=== PATIENT | female | born 1970 | race Caucasian/White ===

== ENCOUNTER 2017-08-31 13:30 | Inpatient (IN) | payer OTHER ==
[~2017-08-31] VITALS: Ht 160 cm; Wt 105.7 kg
[2017-08-31 14:03] VITALS: BP 110/71
--- NOTE | 2017-08-31 14:08 | NUR ---
Patient ambulated to bed 04.
--- NOTE | 2017-08-31 14:16 | NUR ---
PT PRESENTS TO ER W/C/O ABDOMINAL PAIN AND CONSTIPATION X3 DAYS.DENIES N/V/D; SKIN IS PINK/WARM/DRY; AAOX4 WITH EVEN AND STEADY GAIT; LUNGS CLEAR BL; HR EVEN AND REGULAR; PT DENIES ANY FEVER, CP, SOB, OR COUGH AT THIS TIME; PATIENT STATES PAIN OF 8/10 AT THIS TIME;PATIENT POSITIONED FOR COMFORT; HOB ELEVATED; BEDRAILS UP X2; BED DOWN. ER MD MADE AWARE OF PT STATUS.
--- NOTE | 2017-08-31 14:22 | NUR ---
Dr. Russell evaluating patient at bedside.
[2017-08-31] MEDS ORDERED: KETOROLAC 30 MG/ML VIAL IM ONE (14:25)
[2017-08-31 14:41] LABS: BASOPHILS # (AUTO) 0.2 K/uL (0.00-0.22); MEAN CORPUSCULAR VOLUME 81 fL (80-94)
[2017-08-31 14:44] LABS: EOSINOPHILS # (AUTO) 0.2 K/uL (0-0.4); HEMATOCRIT 41.8 % (36-48); LYMPHOCYTES % (AUTO) 12.7 % (20.5-51.1); MEAN CORPUSCULAR HEMOGLOBIN 27 pg (27-31); MEAN CORPUSCULAR HGB CONC 33 g/dL (33-37); MONOCYTES # (AUTO) 1.3 K/uL (0.8-1.0); NEUTROPHILS # (AUTO) 12.4 K/uL (1.8-7.7); NEUTROPHILS % (AUTO) 77.3 % (42.2-75.2); PLATELET COUNT (AUTO) 206 K/uL (140-450); RED BLOOD CELL COUNT(AUTO) 5.19 MIL/uL (4.20-5.40); RED CELL DISTRIBUTION WIDTH 12.9 % (11.6-13.7); WHITE BLOOD COUNT (AUTO) 16.1 K/uL (4.8-10.8)
[2017-08-31 14:51] LABS: ANION GAP 14.1 (8-16); CARBON DIOXIDE 26.9 mmol/L (21-32); CREATININE 0.9 mg/dL (0.6-1.3)
[2017-08-31 14:53] LABS: APPEARANCE,URINE CLEAR (CLEAR); BILIRUBIN,URINE 1+ (NEGATIVE); BLOOD, URINE 3+ (NEGATIVE); LEUKOCYTE ESTERASE ,URINE NEGATIVE (NEGATIVE); NITRITE, URINE NEGATIVE (NEGATIVE); PH,URINE 5.5 (5.0-9.0); UGLUCOSE NEGATIVE (NEGATIVE)
[2017-08-31 14:56] LABS: COLOR,URINE AMBER (YELLOW)
[2017-08-31 14:57] LABS: ALBUMIN 3.5 g/dL (3.4-5.0); TOTAL BILIRUBIN 0.6 mg/dL (0.0-1.0)
[2017-08-31 14:58] LABS: RBC,URINE 0-5 (RARE) /HPF (0-5); WBC,URINE 0-5 (RARE) /HPF (0-5)
--- NOTE | 2017-08-31 15:16 | NUR ---
Patient was taken to CT via wheelchair per tech.
--- NOTE | 2017-08-31 15:26 | NUR ---
Patient back from CT via wheelchair per tech.
--- NOTE | 2017-08-31 15:44 | NUR ---
PT VERBALIZES RELIEF FROM PAIN 4/10 PAIN SCALE;NO FACIAL GRIMMACING /MOANING NOTED;
[2017-08-31] MEDS ORDERED: CYCLOBENZAPRINE 10 MG TAB PO ONE (15:55)
--- NOTE | 2017-08-31 16:13 | NUR ---
PT RESTING ON BED;NO ACUTE DISTRESS NOTED;WILL CONTINUE TO MONITOR PT.
[2017-08-31] MEDS ORDERED: ONDANSETRON 4 MG/2 ML VIAL IVP ONE (16:45)
[2017-08-31] MEDS ORDERED: LORazepam 2 MG/ML VIAL IVP PRN (16:45)
[2017-08-31] MEDS ORDERED: MORPHINE SULFATE 4 MG/ML SYR IVP PRN (16:45)
[2017-08-31] MEDS ORDERED: NACL 0.9% 1,000 ML IV ONE (16:45)
[2017-08-31] MEDS ORDERED: MORPHINE SULFATE 50 MG in NACL 0.9% 45 ML IV SCH (16:45)
[2017-08-31] MEDS ORDERED: ONDANSETRON 4 MG/2 ML VIAL IVP PRN (16:45)
[2017-08-31] MEDS ORDERED: MORPHINE SULFATE 2 MG/ML SYR IVP PRN (16:45)
[2017-08-31] MEDS ORDERED: MORPHINE SULFATE 4 MG/ML SYR IVP ONE (17:00)
--- NOTE | 2017-08-31 17:07 | NUR ---
PT DON'T WANT THE MORPHINE;PT STATES "I WILL WAIT"I DON'T HAVE THAT MUCH PAIN";WILL KEE UE TO MONITOR PT.
--- NOTE | 2017-08-31 17:18 | NUR ---
TRIED TO GIVE REPORT;SPOKE TO JOSE G LYONS;THEY SAID THEY WILL CALL BACK AFETR 10 MINUTES BECAUSE THEY DON'T HAVE A BED YET.
--- NOTE | 2017-08-31 17:35 | NUR ---
PT STILL REFUSE MORPHINE;MEDICINE WAS WASTED IN PHARMACEUTICAL BIN.
--- NOTE | 2017-08-31 17:50 | NUR ---
Patient will be admitted to care of DR GOULD. Admited to MS. Will go to room 105 B. Belongings list completed. Report to JOSE G MART.
--- NOTE | 2017-08-31 19:40 | NUR ---
RECEIVED PT FROM JANETTE ARAIZA PT AAOX4 AMBULATORY HL ON RT AC PATENT ,NOT SIGNS OF PAIN ON ADMISSION PT IS ORIENTED TO THE FLOOR CALL LIGHT WITHIN REACH.
[2017-08-31 20:00] VITALS: BP 118/66
--- NOTE | 2017-08-31 22:00 | NUR ---
PT VOIDING WELL AMBULATES TO THE RESTROOM DENIES ANY PAIN
[2017-08-31] MEDS: ACETAMINOPHEN 325 MG TAB PO PRN (23:45)
[2017-09-01] VITALS: BP 104/78
--- NOTE | 2017-09-01 02:02 | NUR ---
AFTER PAIN MEDIC GIVEN PT SLEEP QUIET NOT DISTRESS NOTED
--- NOTE | 2017-09-01 04:00 | NUR ---
PT REMAIN STABLE DENIES ANY PAIN OR DISCOMFORT
--- NOTE | 2017-09-01 06:26 | NUR ---
PT SLEEPING WELL DENIES ANY PAIN AT THIS TIME
[2017-09-01 06:52] LABS: BASOPHILS # (AUTO) 0.1 K/uL (0.00-0.22); BASOPHILS % (AUTO) 0.9 % (0.0-2.0); EOSINOPHILS # (AUTO) 0.2 K/uL (0-0.4); EOSINOPHILS % (AUTO) 1.5 % (0.0-4.0); HEMATOCRIT 38.4 % (36-48); HEMOGLOBIN 12.8 g/dL (12.0-16.0); LYMPHOCYTES # (AUTO) 2.2 K/uL (2.5-16.5); LYMPHOCYTES % (AUTO) 16.2 % (20.5-51.1); MEAN CORPUSCULAR HEMOGLOBIN 27 pg (27-31); MEAN CORPUSCULAR HGB CONC 33 g/dL (33-37); MEAN CORPUSCULAR VOLUME 81 fL (80-94); MONOCYTES # (AUTO) 0.9 K/uL (0.8-1.0); MONOCYTES % (AUTO) 6.4 % (1.7-9.3); NEUTROPHILS # (AUTO) 10.1 K/uL (1.8-7.7); PLATELET COUNT (AUTO) 169 K/uL (140-450); RED BLOOD CELL COUNT(AUTO) 4.74 MIL/uL (4.20-5.40); RED CELL DISTRIBUTION WIDTH 12.9 % (11.6-13.7); WHITE BLOOD COUNT (AUTO) 13.5 K/uL (4.8-10.8)
[2017-09-01 07:03] LABS: CARBON DIOXIDE 27.2 mmol/L (21-32); CREATININE 0.9 mg/dL (0.6-1.3); MAGNESIUM 2.3 mg/dL (1.8-2.4); PHOSPHORUS 4.4 mg/dL (2.5-4.9); POTASSIUM 4.2 mmol/L (3.5-5.1); TOTAL BILIRUBIN 0.5 mg/dL (0.0-1.0)
--- NOTE | 2017-09-01 07:15 | NUR ---
RECEIVED PT REPORT AT BEDSIDE FROM NIGHT NURSE. PT IS AAOX4 AND SHOWS NO S/S OF ACUTE DISTRESS ON RA. PT IS AROUSABLE TO NAME AND STATES 2/10 TOLERABLE ABD PAIN. PT SKIN IS INTACT. PT ON MS. IV NOTED ON THE RT AC SL, PATENT AND INTACT. PT WAS EXPLAINED POC FOR TODAY AND VERBALIZE UNDERSTANDING. THE BED IS IN LOW POSITION WITH CALL LIGHT WITHIN REACH. ALL NEED'S MET AT THIS TIME. WILL CONTINUE TO MONITOR.
[2017-09-01 08:00] VITALS: BP 116/59
--- NOTE | 2017-09-01 08:25 | NUR ---
DR Terrie ISBELL AT BEDSIDE DISCUSSING WITH PT POC DURING HOSPITAL STAY. DR PEDERSEN TO DC AT THIS POINT AND TO FOLLOW UP WITH PCP REGARDING HOSPITAL ADMISSION. PT AGREES AND VERBALIZED UNDERSTANDING OF POC. ALL OF PT'S NEEDS MET AT THIS TIME. WILL CONTINUE TO MONITOR.
--- NOTE | 2017-09-01 08:41 | NUR ---
PATIENT HAS BEEN SCREENED AND CATEGORIZED HIGH NUTRITION RISK. PATIENT WILL BE SEEN WITHIN 1-2 DAYS OF ADMISSION. 09/01/17-09/02/[address]
[2017-09-01] MEDS ORDERED: ENOXAPARIN 40 MG/0.4 ML SYR SUBQ SCH (09:00)
[2017-09-01] MEDS: ACETAMINOPHEN 325 MG TAB PO PRN (09:35)
--- NOTE | 2017-09-01 09:35 | NUR ---
ADMINISTERED SCHEDULED MEDICATIONS. PT THEN C/O MODERATE 3/10 ABD PAIN AND ASKED FOR TYLENOL. ADMINISTERED TYLENOL 650 MG PO. WILL REASSESS PAIN IN ONE HR.
--- NOTE | 2017-09-01 10:25 | NUR ---
PT SEEN BY DR GOULD, PT OKAYED TO BE DISCHARGED.
[2017-09-01] MEDS ORDERED: OMEP20EC6 PO (11:43)
[2017-09-01] MEDS ORDERED: CALC-810 PO (11:43)
--- NOTE | 2017-09-01 11:45 | NUR ---
PT WAS GIVEN PRUNE JUICE AND ENCOURAGE TO AMB TO HAVE A BM. PT STATES, " I HAVE NOT HAD A BM SINCE TUESDAY, IT'S BEEN FOUR DAYS." DR GOULD IS AWARE AND AGREED TO GIVE PRESCRIPTIONS HOWEVER NO PRESCRIPTIONS IN CHART. WILL NOTIFY DR GOULD.
[2017-09-01] MEDS ORDERED: DOCU1TAB73 PO (11:47)
[2017-09-01] MEDS ORDERED: LACT10SO1 PO (11:47)
--- NOTE | 2017-09-01 13:15 | NUR ---
DR GOULD PRESCRIBED MEDICATIONS TO [facility]. WAS NOTIFIED AND STATED HE WILL SEND TRANSCRIPTIONS TO [facility] [place] [address]
--- NOTE | 2017-09-01 13:35 | NUR ---
PT HAS BEEN DISCHARGED. ALL DISCHARGE INSTRUCTIONS GIVEN. ALL PAPERWORK SIGNED. ALL QUESTIONS ANSWERED. PT IS AWARE DR GOULD WILL [facility]. ALL BELONGINGS IN PATIENT'S POSSESSION. IV DISCONTINUED WITH CANNULA INTACT. WRISTBANDS REMOVED. OFFERED PT WHEEL CHAIR HOWEVER PREFERRED TO AMB OFF UNIT. PT AMB OFF UNIT WITH STABLE GAIT WITH FAMILY PRESENT AT SIDE.
== END 2017-09-01 13:35 | disposition home or self-care (01) ==
LOC: MED 13:30 → MTU 16:46
PROVIDERS: ADMIT Hospitalist; ATTEND Hospitalist
DX: K80.20 Calculus of gallbladder without cholecystitis without obstruction (principal); D25.9 Leiomyoma of uterus, unspecified; D72.829 Elevated white blood cell count, unspecified; N83.201 Unspecified ovarian cyst, right side
CPT/HCPCS: 36415; 76856; 80053; 81001; 83605; 83690; 83735; 84100; 85025; 87081; 96361; 96372; 96374; 99285; J1650; J1885; J2270; J2405; J7030; Q0092

== ENCOUNTER 2017-09-16 21:42 | Emergency (ER) | payer OTHER ==
[~2017-09-16] VITALS: Ht 160 cm; Wt 106.7 kg
[~2017-09-16 21:42] MED LIST: CALC-810 PO; DOCU1TAB73 PO; LACT10SO1 PO; OMEP20EC6 PO
[2017-09-16 21:49] VITALS: BP 129/54
--- NOTE | 2017-09-16 21:58 | NUR ---
PT TAKEN TO BED 12
--- NOTE | 2017-09-16 22:15 | NUR ---
47Y/F PT. PRESENTS TO ED WITH C/O ABODMINAL PAIN X 1 WK. PT. STATES ABDOMINAL PAIN ON AND OFF X1 WKS. ALSO STATES FEELING NAUSEATED. LAST LARGE BM 5 DAYS AGO, PT. STATES TOOK PRUIN JUICE , SMALL HARD BM TODAY. NO MEDICAL HX. AAO X4, AMBULATORY WITH STEADY GAIT. REPSIRATIONS ROOM AIR, EVEN AND UNLABORED. ABDOMEN ROUND, NON TENDER, ACTIVE BS X4, C/O PAIN 07/26. VSS, ER MD MADE AWARE OF PT. STATUS.
--- NOTE | 2017-09-16 23:46 | NUR ---
Dr. Dior evaluating patient at bedside.
[2017-09-17 00:45] VITALS: BP 120/61
--- NOTE | 2017-09-17 00:45 | NUR ---
Patient discharged with v/s stable. Written and verbal after care instructions given and explained. Patient alert, oriented and verbalized understanding of instructions. Ambulatory with steady gait. All questions addressed prior to discharge. ID band removed. Patient advised to follow up with PMD. Rx of MIRALAX POWER, COLACE 100 MG given. Patient educated on indication of medication including possible reaction and side effects. Opportunity to ask questions provided and answered.
== END 2017-09-17 00:45 | disposition home or self-care (01) ==
LOC: MED 21:42
DX: K59.00 Constipation, unspecified (principal); K85.10 Biliary acute pancreatitis without necrosis or infection; I10 Essential (primary) hypertension; Z79.899 Other long term (current) drug therapy
CPT/HCPCS: 74000; 81002; 81025; 99283

== ENCOUNTER 2017-10-25 11:29 | Emergency (ER) | payer OTHER ==
[~2017-10-25] VITALS: Ht 158.8 cm; Wt 105.3 kg
[2017-10-25 11:55] VITALS: BP 146/90
--- NOTE | 2017-10-25 11:58 | NUR ---
PT AA&OX 4, RR EVEN/UNLABORED AT THIS TIME; PT STATES HAS DIFFICULTY BREATHING WHEN COUGHING, BUT STATES CAN BREATHE OK AT THIS TIME. PT TO LOBBY AWAITING OPEN BED.
--- NOTE | 2017-10-25 14:16 | NUR ---
PT PLACED IN OF4, IN NAD. RESP EVEN AND UNALBORED, AT BEDSIDE. 47F BIB SELF C/O DIFFICULTY BREATHING AND COUGH X THIS MORNING. PT STATES VOMITTED X LAST NIGHT. DENIES ANY FEVERS/CHILLS. LS-CLR BILM UNLABORED. HX: PT DENIES RX: PT DENIES
--- NOTE | 2017-10-25 14:41 | NUR ---
Pt angry with staff regarding long waiting times, ER MD informed that pt wants to be sen right away. Resp even and unlabored, will cont to monitor.
[2017-10-25 15:49] VITALS: BP 146/90
--- NOTE | 2017-10-25 15:50 | NUR ---
Patient discharged with v/s stable. Written and verbal after care instructions given and explained. Patient alert, oriented and verbalized understanding of instructions. Ambulatory with steady gait. All questions addressed prior to discharge. ID band removed. Patient advised to follow up with PMD. Rx of COUGH SYRUP, VENTOLIN, AND MOTRIN given. Patient educated on indication of medication including possible reaction and side effects. Opportunity to ask questions provided and answered.
== END 2017-10-25 15:50 | disposition home or self-care (01) ==
LOC: MED 11:29
DX: J06.9 Acute upper respiratory infection, unspecified (principal)
CPT/HCPCS: 99283

== ENCOUNTER 2021-01-07 03:21 | Inpatient (IN) | payer OTHER, SELFPAY ==
[~2021-01-07] VITALS: Ht 157.5 cm; Wt 106.1 kg
[~2021-01-07 03:21] MED LIST changes: +LACT-103 PO; -LACT10SO1 PO; +OMEP-283 PO; -OMEP20EC6 PO
[2021-01-07 03:28] VITALS: BP 99/66
--- NOTE | 2021-01-07 03:28 | NUR ---
to bed ambulatory
--- NOTE | 2021-01-07 03:50 | NUR ---
Pt c/o dizziness for one day and [place], heavy vaginal bleeding, and sweating. States she had hysterectomy 01/02 and has been having pain at incision site. Hx of HTN.
[2021-01-07] MEDS ORDERED: NACL 0.9% 1,000 ML IV ONE (04:00)
--- NOTE | 2021-01-07 04:50 | NUR ---
Blood cultures, blood labs & urine sample walked to lab and placed on counter. Mitchel labor training manager informed that labs are on counter at this time.
[2021-01-07 05:00] LABS: APPEARANCE,URINE HAZY (CLEAR); BILIRUBIN,URINE 1+ (NEGATIVE); BLOOD, URINE 3+ (NEGATIVE); COLOR,URINE ORANGE (YELLOW); LEUKOCYTE ESTERASE ,URINE 3+ (NEGATIVE); NITRITE, URINE NEGATIVE (NEGATIVE); UGLUCOSE NEGATIVE (NEGATIVE)
[2021-01-07 05:15] LABS: ALBUMIN 3.2 g/dL (3.4-5.0); ANION GAP 13.5 (8-16); CARBON DIOXIDE 23.8 mmol/L (21-32); CREATININE 0.9 mg/dL (0.6-1.3); POTASSIUM 3.3 mmol/L (3.5-5.1); TOTAL BILIRUBIN 0.5 mg/dL (0.0-1.0)
[2021-01-07 05:24] LABS: RBC,URINE TOO NUMEROUS TO COUN /HPF (0-5)
[2021-01-07] MEDS ORDERED: cefTRIAXone 2,000 MG in DEXTROSE 5% 100 ML IV ONE (05:25)
[2021-01-07] MEDS ORDERED: cefTRIAXone 2,000 MG VIAL ONE (05:30)
[2021-01-07] MEDS ORDERED: KETOROLAC 30 MG/ML VIAL IVP ONE (05:45)
[2021-01-07 06:18] LABS: BASOPHILS # (AUTO) 0.1 K/uL (0.00-0.22); BASOPHILS % (AUTO) 0.2 % (0.0-2.0); EOSINOPHILS # (AUTO) 0.1 K/uL (0-0.4); EOSINOPHILS % (AUTO) 0.3 % (0.0-4.0); HEMATOCRIT 31.1 % (36-48); HEMOGLOBIN 9.6 g/dL (12.0-16.0); LYMPHOCYTES # (AUTO) 2.1 K/uL (2.5-16.5); MEAN CORPUSCULAR HEMOGLOBIN 22 pg (27-31); MEAN CORPUSCULAR HGB CONC 31 g/dL (33-37); MEAN CORPUSCULAR VOLUME 70.8 fL (80-94); MONOCYTES # (AUTO) 1.9 K/uL (0.8-1.0); MONOCYTES % (AUTO) 9.1 % (1.7-9.3); NEUTROPHILS # (AUTO) 16.6 K/uL (1.8-7.7); NEUTROPHILS % (AUTO) 80.4 % (42.2-75.2); PLATELET COUNT (AUTO) 232 K/uL (140-450); RED CELL DISTRIBUTION WIDTH 17.6 % (11.6-13.7); WHITE BLOOD COUNT (AUTO) 20.7 K/uL (4.8-10.8)
[2021-01-07] MEDS ORDERED: ACET-9525 PO (06:54)
[2021-01-07] MEDS ORDERED: IBUP-1842 PO (06:54)
[2021-01-07] MEDS ORDERED: NACL 0.9% 2,000 ML IV ONE (07:00)
--- NOTE | 2021-01-07 07:09 | NUR ---
TRANSFER OF CARE AT THIS TIME FROM JOSE G PALOMO.
--- NOTE | 2021-01-07 07:37 | NUR ---
Patient resting in bed. Patient not reporting any pain at this time. Bed in lowest position, side rail up x1. All needs met at this time.
--- NOTE | 2021-01-07 08:07 | NUR ---
Patient ambulated to bathroom with a steady gait. Patient repositioned in bed.
[2021-01-07] MEDS ORDERED: ONDANSETRON 4 MG/2 ML VIAL IM/IVP PRN (08:25)
[2021-01-07] MEDS ORDERED: POTASSIUM CHLORIDE 10 MEQ TABER PO PRN (08:25)
[2021-01-07] MEDS ORDERED: ZOLPIDEM 5 MG TAB PO PRN (08:25)
[2021-01-07] MEDS ORDERED: ACETAMINOPHEN 325 MG TAB PO PRN (08:25)
[2021-01-07] MEDS ORDERED: DOCUSATE SODIUM 100 MG GELCAP PO PRN (08:25)
[2021-01-07] MEDS ORDERED: guaiFENesin DM 200/20 MG-10 ML 10 ML UDC PO PRN (08:25)
--- NOTE | 2021-01-07 08:37 | NUR ---
Patient taken to CT via gurney.
--- NOTE | 2021-01-07 08:56 | NUR ---
Patient returned from CT
[2021-01-07] MEDS: PANTOPRAZOLE 40 MG TABEC PO SCH (09:12)
[2021-01-07] MEDS: NACL 0.9% 1,000 ML IV SCH ×2 (09:14→18:47)
[2021-01-07 09:19] LABS: CHOL/HDL RATIO 3.9 (1-4.5); FREE T4 (FREE THYROXINE) 1.15 ng/dL (0.76-1.46); MAGNESIUM 2.1 mg/dL (1.8-2.4); PHOSPHORUS 4.4 mg/dL (2.5-4.9); THYROID STIMULATING HORMONE 3.9 uIU/mL (0.34-3.74)
[2021-01-07 09:23] LABS: PROTHROMBIN TIME 10.3 secs (10.8-13.4)
--- NOTE | 2021-01-07 09:56 | NUR ---
Dr. Salas at the bedside, made aware immediately of patient's elevated troponin 0.125.
--- NOTE | 2021-01-07 10:05 | NUR ---
Patient ambulated to the restroom with a steady gait. Patient provided with breakfast tray.
--- NOTE | 2021-01-07 11:34 | NUR ---
SOCIAL WORK NOTE: Patient's Orientation Unable To Assess Information Provided By SHERRY SONIDO - Comments SW WAS UNABLE TO MEET PATIENT AT BEDSIDE. SW COMPLETED ASSESSMENT WITH PATIENT'S . Vacuum Filter Operator, Realtionship and Phone Number SHERRY HEAD [phone] Healthcare Power of Operations Research Director No Does Patient Have a POLST No Identifying Problems No Social Work Triggers Is A Social Work Consult Needed No Mandate Report Filed No Explanation Of Identifying Problems PATIENT IS A 50-YEAR-OLD FEMALE ADMITTED FOR UTI. PATIENT HAS PMHX OF ASTHMA. PATIENT'S REPORTED NO HX OF MENTAL HEALTH AND SUBSTANCE ABUSE. Admitted From Home Pre-Admission Level Of Functioning Status Independent/Ambulatory Prior Resources/Services Used In Last 12 Months No Prior Resources Used Prior DME No Prior DME Used Dialysis Comments N/A Living Situation Lives With Family House Patient Had Caregiver No Home Support No Caregiver Issues Financial Issues No Known Financial Issue Referral To The Financial Counselor Needed No Factors/Needs No D/C Needs Identified Pt/Rep Participated In Discharge Plan Yes Patient/Family Agress With Discharge Plan Yes Discharge Plan Comments TENTATIVE DISCHARGE PLAN IS FOR PATIENT TO RETURN HOME. DC Plan Status Initiated
--- NOTE | 2021-01-07 11:50 | NUR ---
Called JOSE G Rosa at [phone], report given and patient will be transferred to 111B
[2021-01-07 12:00] VITALS: BP 102/41
--- NOTE | 2021-01-07 12:00 | NUR ---
Patient will be admitted to care of Dr. Salas. Admited to TELE. Will go to room 111B. Belongings list completed. Report to JOSE G Rosa.
--- NOTE | 2021-01-07 12:00 | NUR ---
PATIENT ARRIVED UNIT VIA GURNEY. REPORT RECEIVED FROM ZELALEM ARAIZA. PATIENT AMBULATORY. ALERT AND ORIENTED X4. ABLE TO MAKE NEEDS KNOWN. ON ROOM AIR. NOTED X4 HEALING SURGICAL INCISION SITES ON ANTERIOR ABDOMEN. PATIENT STATED SHE GOT THE PNEUMOCOCCAL VACCINE SEPTEMBER 2020 AND WOULD WANT TO DISCUSS WITH PCP OR MD BEFORE GETTING THE FLU VACCINE.
--- NOTE | 2021-01-07 12:31 | NUR ---
DC [age] YRS OLD FEMALE PATIENT WAS ADMITTED FROM HOME WITH A DX OF UTI, AND SEPSIS. PT HAS A HX OF HTN. PT HAD HYSTERECTOMY ON 01/02/21 . CXR SHOWED LEFT LUNG BASE ATELECTASIS . HEAD CT NEGATIVE AND CT ABD/PELVIS SHOWED EXTENSIVE INFLAMMATORY CHANGES IN THE PELVIS AREA. RAPID COVID TEST NEGATIVE. ADMINISTERED IVF, IV ABX ZOSYN IV PROTONIX AND CONTINUED HOME MEDS. CONSULTED WITH CLINICAL APPLICATIONS MANAGER AND SHANK BURNISHER. DC PLAN TO GO HOME WHEN STABLE CM TO FOLLOW
[2021-01-07] MEDS: HYDROcodone/APAP 7.5/325 MG 1 TAB PO PRN ×2 (12:56→17:16)
[2021-01-07] MEDS: PIPERACILLIN/TAZOBACTAM 3.375 GM in DEXTROSE 5% 50 ML IV SCH ×3 (12:57→23:02)
--- NOTE | 2021-01-07 15:50 | NUR ---
PATIENT HAS BEEN SCREENED AND CATEGORIZED MODERATE NUTRITION RISK. PATIENT WILL BE SEEN WITHIN 3-5 DAYS OF ADMISSION. 01/09/21 01/11/[address]
[2021-01-07 16:00] VITALS: BP 92/37
[2021-01-07] MEDS: ATORVASTATIN 20 MG TAB PO SCH (17:17)
--- NOTE | 2021-01-07 18:00 | NUR ---
REPORTED BLOOD PRESSURES OF 102/41, AND 92/[address] SARABIA AND DR GAYATRI MARSHALL. NO NEW ORDERS. PATIENT HAS NS [id number] ONGOING AT THIS TIME WITH FIRST DOSE OF ZOSYN ADMINISTERED. THIS NURSE WITNESSED AND ASSISTED DR SARABIA TO PERFORM PELVIC EXAMINATION AND SAMPLE SENT TO LABORATORY ORDERED. PATIENT DENIES HEADACHE OR NAUSEA.
[2021-01-07 18:55] VITALS: BP 102/41
--- NOTE | 2021-01-07 19:00 | NUR ---
dr ge and dr sanjana benitez of troponins level 0.201
--- NOTE | 2021-01-07 19:20 | NUR ---
RECEIVED BEDSIDE REPORT FROM DAY RN. PT IS AAOX4 ABLE TO MAKE NEEDS KNOWN. RESPIRATIONS ARE EQUAL AND UNLABORED ON ROOM AIR. LUNG SOUNDS ARE CLEAR. PER REPORT TROP TRENDING UP PT DENIES ANY CHEST PAIN. PT IS S/P LAPAROSCOPIC TOTAL ABD HYSTERECTOMY FOR UTERINE CANCER ON 01/02 INCISION ON MID ABD VERTICAL APPROX WITH STERI STRIPS. AND 3 LAP INCISIONS ON ABD APPROX WITH DERMA CALVIN CARPET WINDER CLEAN AND DRY NO S/S OF INFECTION. PT REPORTS VAGINAL SPOTTING PER PT DRAINAGE IS BROWN AND CLEAR. C/C FATIGUE AND DIZZINESS. ORIENTED PT TO CALL LIGHT AND ENCOURAGE TO WEAR NON SKID SOCKS AND CALL FOR ASSISTANCE. PT VERBALIZED UNDERSTANDING. CALL LIGHT IS WITHIN REACH.
[2021-01-07 20:00] VITALS: BP 96/43
--- NOTE | 2021-01-07 20:01 | NUR ---
VSS. HELD PUJA BP MEDICATION FOR 96/43 HR 77. POC DISCUSSED WITH PT. PT VERBALIZED UNDERSTANDING. THIRD TROP BEING DRAWN NOW. ALL NEEDS MET. CALL LIGHT IS WITHIN REACH.
[2021-01-07] MEDS: METOPROLOL 25 MG TAB PO SCH (20:11)
--- NOTE | 2021-01-07 21:00 | NUR ---
RECEIVED CALL BACK FROM DR SCANLON REGARDING PTS TROP TRENDING UP 0.234 PER NEW ORDER FOR TROP TO BE DRAWN 01/08 AT 0600. WILL CARRY OUT.
[2021-01-08] VITALS: BP 98/48
--- NOTE | 2021-01-08 | NUR ---
VITAL SIGNS ARE WITHIN NORMAL LIMITS. ALL NEEDS MET. CALL LIGHT IS WITHIN REACH. WILL CONTINUE TO MONITOR.
[2021-01-08 00:30] LABS: BARBITURATE, URINE NEGATIVE ng/ml (NEG <=200); BENZODIAZEPINE, URINE NEGATIVE ng/mL (NEG <=200); CANNABINOID, URINE NEGATIVE ng/mL (NEG <=50); COCAINE, URINE NEGATIVE ng/mL (NEG <=300); OPIATE, URINE POSITIVE ng/mL (NEG <=2000); PHENCYCLIDINE SCREEN,URINE NEGATIVE ng/mL (NEG <=25)
[2021-01-08] MEDS: NACL 0.9% 1,000 ML IV SCH ×3 (01:14→21:10)
--- NOTE | 2021-01-08 02:16 | NUR ---
ROUNDS MADE. PT APPEARS TO BE ASLEEP. CHEST RISE AND FALL NOTED. NO S/S OF DISTRESS. CALL LIGHT IS WITHIN REACH.
[2021-01-08 04:00] VITALS: BP 93/43
--- NOTE | 2021-01-08 04:00 | NUR ---
VITAL SIGNS ARE WITHIN NORMAL LIMITS. ALL SAFETY MEASURES ARE IN PLACE.
[2021-01-08] MEDS: PIPERACILLIN/TAZOBACTAM 3.375 GM in DEXTROSE 5% 50 ML IV SCH (05:04)
[2021-01-08 06:47] LABS: BASOPHILS % (AUTO) 0.4 % (0.0-2.0); EOSINOPHILS # (AUTO) 0.3 K/uL (0-0.4); HEMOGLOBIN 8.1 g/dL (12.0-16.0); LYMPHOCYTES # (AUTO) 1.1 K/uL (2.5-16.5); LYMPHOCYTES % (AUTO) 8.8 % (20.5-51.1); MEAN CORPUSCULAR HEMOGLOBIN 22 pg (27-31); MEAN CORPUSCULAR HGB CONC 30 g/dL (33-37); MEAN CORPUSCULAR VOLUME 71.7 fL (80-94); MONOCYTES # (AUTO) 0.8 K/uL (0.8-1.0); MONOCYTES % (AUTO) 6.1 % (1.7-9.3); NEUTROPHILS # (AUTO) 10.6 K/uL (1.8-7.7); NEUTROPHILS % (AUTO) 82.7 % (42.2-75.2); PLATELET COUNT (AUTO) 182 K/uL (140-450); RED BLOOD CELL COUNT(AUTO) 3.77 MIL/uL (4.20-5.40); RED CELL DISTRIBUTION WIDTH 17.4 % (11.6-13.7); WHITE BLOOD COUNT (AUTO) 12.8 K/uL (4.8-10.8)
[2021-01-08 06:53] LABS: ANION GAP 13.3 (8-16); CARBON DIOXIDE 22.3 mmol/L (21-32); CREATININE 0.7 mg/dL (0.6-1.3); POTASSIUM 3.6 mmol/L (3.5-5.1)
--- NOTE | 2021-01-08 07:30 | NUR ---
GAVE BEDSIDE REPORT TO DAY RN. PT ENDORSED IN STABLE CONDITION.
--- NOTE | 2021-01-08 07:31 | NUR ---
RECEIVED REPORT FROM MANAGER INSTALLATION NURSE. PATIENT IN STABLE CONDITION. SAFETY MEASURES IN PLACE, CALL LIGHT WITHIN REACH. WILL CONTINUE TO MONITOR.
[2021-01-08 08:00] VITALS: BP 120/58
[2021-01-08] MEDS ORDERED: NACL 0.9% 1,000 ML IV SCH (08:10)
[2021-01-08] MEDS: PANTOPRAZOLE 40 MG TABEC PO SCH (08:47)
[2021-01-08] MEDS: METOPROLOL 25 MG TAB PO SCH ×2 (08:48→22:15)
[2021-01-08] MEDS: lisinopriL 5 MG TAB PO SCH (08:48)
[2021-01-08] MEDS: HYDROcodone/APAP 7.5/325 MG 1 TAB PO PRN (08:48)
[2021-01-08] MEDS: metroNIDAZOLE 500 MG/NS PREMIX 100 ML IV SCH ×2 (08:50→22:13)
[2021-01-08] MEDS: cefTRIAXone 2,000 MG in DEXTROSE 5% 100 ML IV SCH ×2 (09:00→22:09)
--- NOTE | 2021-01-08 09:00 | NUR ---
SCHEDULED MEDICATIONS DUE GIVEN. PATIENT COMPLAINS OF ABDOMINAL SURGICAL PAIN, NORCO GIVEN AT THIS TIME. WILL CONTINUE TO MONITOR.
[2021-01-08 10:49] LABS: T4 (THYROXINE) 7.8 ug/dL (4.5 - 12.0)
--- NOTE | 2021-01-08 11:00 | NUR ---
PATIENT SITTING IN BED ON HER PHONE. CONDITION UNCHANGED. WILL CONTINUE TO MONITOR.
[2021-01-08 12:00] VITALS: BP 103/51
--- NOTE | 2021-01-08 13:00 | NUR ---
PATIENT AMBULATED TO BATHROOM AND BACK TO BED. WILL CONTINUE TO MONITOR.
[2021-01-08 16:00] VITALS: BP 127/76
--- NOTE | 2021-01-08 17:00 | NUR ---
PATIENT TALKING ON THE PHONE WITH FAMILY. CONDITION UNCHANGED. WILL CONTINUE TO MONITOR.
[2021-01-08] MEDS: ATORVASTATIN 20 MG TAB PO SCH (17:54)
--- NOTE | 2021-01-08 19:35 | NUR ---
GAVE REPORT TO INSHORE UNDER[employer] WARFARE OFFICER NURSE FOR CONTINUITY OF CARE. PATIENT IN STABLE CONDITION.
[2021-01-08 20:00] VITALS: BP 106/56
[2021-01-09] VITALS: BP 112/62
[2021-01-09] MEDS: HYDROcodone/APAP 7.5/325 MG 1 TAB PO PRN ×2 (00:25→11:38)
[2021-01-09 04:00] VITALS: BP 118/70
[2021-01-09] MEDS: NACL 0.9% 1,000 ML IV SCH ×3 (05:10→22:09)
[2021-01-09 06:11] LABS: BASOPHILS % (AUTO) 0.3 % (0.0-2.0); EOSINOPHILS # (AUTO) 0.3 K/uL (0-0.4); EOSINOPHILS % (AUTO) 2.7 % (0.0-4.0); HEMATOCRIT 24.8 % (36-48); HEMOGLOBIN 7.7 g/dL (12.0-16.0); LYMPHOCYTES # (AUTO) 1.4 K/uL (2.5-16.5); LYMPHOCYTES % (AUTO) 14.7 % (20.5-51.1); MEAN CORPUSCULAR HEMOGLOBIN 22 pg (27-31); MEAN CORPUSCULAR HGB CONC 31 g/dL (33-37); MEAN CORPUSCULAR VOLUME 70.5 fL (80-94); MONOCYTES # (AUTO) 0.6 K/uL (0.8-1.0); MONOCYTES % (AUTO) 6.4 % (1.7-9.3); NEUTROPHILS % (AUTO) 75.9 % (42.2-75.2); PLATELET COUNT (AUTO) 188 K/uL (140-450); RED BLOOD CELL COUNT(AUTO) 3.51 MIL/uL (4.20-5.40); RED CELL DISTRIBUTION WIDTH 17.2 % (11.6-13.7); WHITE BLOOD COUNT (AUTO) 9.2 K/uL (4.8-10.8)
[2021-01-09 06:33] LABS: ANION GAP 14.1 (8-16); CARBON DIOXIDE 21.4 mmol/L (21-32); CREATININE 0.6 mg/dL (0.6-1.3); POTASSIUM 3.5 mmol/L (3.5-5.1)
--- NOTE | 2021-01-09 07:30 | NUR ---
RECEIVED BEDSIDE REPORT FROM INSULATION BOARD BACK TENDER RN. PT IS AAOX4 ABLE TO MAKE NEEDS KNOWN. RESPIRATIONS ARE EVEN AND UNLABORED ON ROOM AIR. PT IS S/P LAPAROSCOPIC TOTAL ABD HYSTERECTOMY FOR UTERINE CANCER ON 01/02. INCISION N MID ABD WITH STERI STRIPS. 3 LAP INCISIONS ON ABD APPROX WITH DERMA CALVIN BRIAN CLEAN AND DRY NO S/S OF INFECTION. PLAN OF CARE DISCUSSED. SAFETY PRECAUTIONS IN PLACE. PT VERBALIZED UNDERSTANDING. CALL LIGHT IS WITHIN REACH.
[2021-01-09 08:00] VITALS: BP 147/33
[2021-01-09] MEDS: metroNIDAZOLE 500 MG/NS PREMIX 100 ML IV SCH ×2 (09:10→21:01)
[2021-01-09] MEDS: lisinopriL 5 MG TAB PO SCH (09:10)
[2021-01-09] MEDS: METOPROLOL 25 MG TAB PO SCH ×2 (09:11→21:00)
[2021-01-09] MEDS: PANTOPRAZOLE 40 MG TABEC PO SCH (09:11)
--- NOTE | 2021-01-09 09:15 | NUR ---
ALL SCHEDULED MEDICATIONS GIVEN. NO RESPIRATORY DISTRESS NOTED. WILL CONTINUE TO MONITOR.
--- NOTE | 2021-01-09 11:39 | NUR ---
PATIENT COMPLAINED OF 6/10 ABDOMINAL PAIN. ADMINISTERED NORCO PRN PER MD ORDERED. WILL REASSESS IN AN HOUR.
[2021-01-09 12:00] VITALS: BP 128/62
--- NOTE | 2021-01-09 13:30 | NUR ---
CHECKED ON PATIENT. PATIENT IS STABLE. NO DISTRESS NOTED. WILL CONTINUE TO MONITOR.
--- NOTE | 2021-01-09 15:30 | NUR ---
CHECKED ON PATIENT. PATIENT IS STABLE. NO DISTRESS NOTED. WILL CONTINUE TO MONITOR.
[2021-01-09 16:00] VITALS: BP 118/50
--- NOTE | 2021-01-09 17:00 | NUR ---
CHECKED ON PATIENT. PATIENT IS STABLE. NO DISTRESS NOTED. WILL CONTINUE TO MONITOR.
[2021-01-09] MEDS: ATORVASTATIN 20 MG TAB PO SCH (17:38)
--- NOTE | 2021-01-09 19:37 | NUR ---
ENDORSED TO FILE KEEPER NURSE FOR CONTINUITY OF CARE. PT IS STABLE.
[2021-01-09 20:00] VITALS: BP 110/53
--- NOTE | 2021-01-09 20:00 | NUR ---
RECEIVED REPORT FROM DAY SHIFT RN. PT ALERT AND ORIENTED. ABLE TO MAKE NEEDS KNOWN TO STAFF. PT ON ROOM AIR. RESPIRATION EVEN AND UNLABORED. SYMMETRICAL CHEST EXPANSION. DIMINISHED LUNG SOUNDS UPON AUSCULTATION. ORAL MUCOSA PINK AND MOIST. PATIENT IS CURRENTLY ON A REGULAR DIET. PATIENT CONNECTED TO TELE MONITOR. PERIPHERAL ACCESS ON THE LEFT AC G20, ASYMPTOMATIC PATENT AND INTACT. INFUSING NS @ 125MLS/HR. PATIENT ABLE TO USE THE BATHROOM WITH VERY MINIMAL ASSIST. DENIES PAIN WHEN AT REST BUT SHE STATED SHE FEELS PAIN EVERY TIME SHE GOES TO THE BATHROOM BUT THE PAIN IS TOLERABLE. SKIN WARM AND DRY, INCISION ON THE MID ABDOMEN OBSERVED. WITH SCATTERED SCABBED SMALL INCISIONS AROUND THE ABDOMEN. BED LOCKED AND IN LOWEST POSITION, SIDE RAILS UP. SAFETY MEASURES IN PLACE, STANDARD PRECAUTION MAINTAINED. WILL CONTINUE TO MONITOR.
[2021-01-09] MEDS: cefTRIAXone 2,000 MG in DEXTROSE 5% 100 ML IV SCH (21:00)
[2021-01-10] VITALS: BP 112/64
--- NOTE | 2021-01-10 | NUR ---
PT RESTING IN BED COMFORTABLY. PT ABLE TO VOICE HER NEEDS. NO DISTRESS NOTED. WILL CONTINUE TO MONITOR.
[2021-01-10 04:00] VITALS: BP 103/46
--- NOTE | 2021-01-10 04:00 | NUR ---
PT HAD NO CONCERNS AND COMPLAINTS AT THIS TIME. WILL CONTINUE TO MONITOR.
[2021-01-10 06:39] LABS: BASOPHILS % (AUTO) 0.5 % (0.0-2.0); EOSINOPHILS # (AUTO) 0.4 K/uL (0-0.4); EOSINOPHILS % (AUTO) 4.2 % (0.0-4.0); HEMATOCRIT 26.3 % (36-48); HEMOGLOBIN 8.1 g/dL (12.0-16.0); LYMPHOCYTES # (AUTO) 1.3 K/uL (2.5-16.5); LYMPHOCYTES % (AUTO) 14.7 % (20.5-51.1); MEAN CORPUSCULAR HEMOGLOBIN 22 pg (27-31); MEAN CORPUSCULAR HGB CONC 31 g/dL (33-37); MEAN CORPUSCULAR VOLUME 70.6 fL (80-94); MONOCYTES # (AUTO) 0.6 K/uL (0.8-1.0); MONOCYTES % (AUTO) 7.2 % (1.7-9.3); NEUTROPHILS # (AUTO) 6.2 K/uL (1.8-7.7); NEUTROPHILS % (AUTO) 73.4 % (42.2-75.2); PLATELET COUNT (AUTO) 226 K/uL (140-450); RED BLOOD CELL COUNT(AUTO) 3.73 MIL/uL (4.20-5.40); RED CELL DISTRIBUTION WIDTH 18.2 % (11.6-13.7); WHITE BLOOD COUNT (AUTO) 8.5 K/uL (4.8-10.8)
[2021-01-10 06:56] LABS: CARBON DIOXIDE 23.6 mmol/L (21-32); CREATININE 0.6 mg/dL (0.6-1.3); POTASSIUM 3.6 mmol/L (3.5-5.1)
--- NOTE | 2021-01-10 07:20 | NUR ---
RECEIVED BEDSIDE REPORT FROM MAINTENANCE MANAGER RN. PT IS AAOX4 ABLE TO MAKE NEEDS KNOWN. RESPIRATIONS ARE EVEN AND UNLABORED ON ROOM AIR. NO SIGNS OF DISTRESS NOTED. SKIN IS WARM AND DRY. PT IS S/P LAPAROSCOPIC TOTAL ABD AND HYSTERECTOMY FOR UTERINE CANCER ON 01/02. INCISION IN MID ABD WITH STERI STRIPS. 3 LAP INCISIONS ON ABD WITH DERMA CALVIN BRIAN, CLEAN AND DRY NO S/S OF INFECTION. PLAN OF CARE DISCUSSED. SAFETY PRECAUTIONS IN PLACE. CALL LIGHT IS WITHIN REACH. WILL CONTINUE MONITOR.
[2021-01-10 08:00] VITALS: BP 95/45
[2021-01-10] MEDS: METOPROLOL 25 MG TAB PO SCH (09:00)
[2021-01-10] MEDS: lisinopriL 5 MG TAB PO SCH (09:00)
[2021-01-10] MEDS: PANTOPRAZOLE 40 MG TABEC PO SCH (09:13)
[2021-01-10] MEDS: HYDROcodone/APAP 7.5/325 MG 1 TAB PO PRN ×2 (09:13→21:08)
--- NOTE | 2021-01-10 09:13 | NUR ---
PATIENT COMPLAINED OF 6/10 ABD PAIN. ADMINISTERED NORCO PO PRN PER MD ORDERED.
[2021-01-10] MEDS: NACL 0.9% 1,000 ML IV SCH ×3 (09:16→19:58)
[2021-01-10] MEDS: metroNIDAZOLE 500 MG/NS PREMIX 100 ML IV SCH ×2 (09:16→21:07)
--- NOTE | 2021-01-10 09:20 | NUR ---
ALL SCHEDULED MEDS GIVEN. PT IS STABLE. NO DISTRESS NOTED. WILL CONTINUE TO MONITOR.
--- NOTE | 2021-01-10 11:30 | NUR ---
CHECKED ON PATIENT. PATIENT IS AWAKE AND WATCHING TV. NO DISTRESS NOTED. WILL CONTINUE TO MONITOR.
[2021-01-10 12:00] VITALS: BP 103/50
--- NOTE | 2021-01-10 13:30 | NUR ---
CHECKED ON PATIENT. PATIENT IS STABLE. NO DISTRESS NOTED. WILL CONTINUE TO MONITOR.
--- NOTE | 2021-01-10 15:30 | NUR ---
CHECKED ON PATIENT. PATIENT IS STABLE. NO DISTRESS NOTED OR COMPLAIN OF PAIN. WILL CONTINUE TO MONITOR.
[2021-01-10 16:00] VITALS: BP 105/53
--- NOTE | 2021-01-10 17:30 | NUR ---
CHECKED ON PATIENT. PATIENT IS STABLE. NO DISTRESS NOTED OR COMPLAIN OF PAIN. WILL CONTINUE TO MONITOR.
--- NOTE | 2021-01-10 19:10 | NUR ---
RECEIVED BEDSIDE REPORT FROM DAY SHIFT NURSE FOR CONTINUITY OF CARE. PT IS AWAKE AND ALERT, A&OX4. ON RA WITH BREATHING UNLABORED. SR ON TELE MONITORING. PT IS AMBULATORY INDEPENDENTLY. PT HAS INCISIONS THAT ARE CLOSED ON THE ABDOMEN, NO DRAINAGE. SKIN IS WARM AND DRY. IV IS IN THE LEFT AC 20 GAUGE RUNNING NS AT 50 ML PER HOUR PER ORDER. PLAN OF CARE DISCUSSED. PT IS STABLE AT THIS TIME. UNIVERSAL AND STANDARD PRECAUTIONS IN PLACE. PT IS COVID RAPID NEGATIVE.
--- NOTE | 2021-01-10 19:12 | NUR ---
ENDORSED TO SAND TEMPERER NURSE FOR CONTINUITY OF CARE. PT IS STABLE.
[2021-01-10] MEDS: cefTRIAXone 2,000 MG in DEXTROSE 5% 100 ML IV SCH (19:58)
[2021-01-10 20:00] VITALS: BP 111/58
--- NOTE | 2021-01-10 21:08 | NUR ---
PT STATED SHE HAD PAIN AT A SCALE OF 6/10 IN THE ABDOMINAL REGION. PT STATES THE PAIN IS ACHING IN CHARACTERISTIC. PT WAS GIVEN NORCO FOR PAIN. WILL CONTINUE TO MONITOR. PT IS UP TO THE RESTROOM TO VOID. GAIT IS STEADY AND PT IS STABLE.
--- NOTE | 2021-01-10 23:15 | NUR ---
MADE ROUNDS ON PT. SHE IS COUGHING CONTINUOSLY BUT DOES NOT APPEAR TO BE IN ANY DISTRESS. EDUCATION WAS PROVIDED ON USING PILLOW FOR SPLINTING, ABDOMINAL INCISION. PT STATED THAT SHE DID NOT HAVE PAIN BUT IT STARTED TO INCREASE WHILE COUGHING. NO DRAINAGE AT THE INCISION SITES AND INCISIONS ARE CLOSED/ INTACT. PT IS NOW RESTING COMFORTABLY IN SEMI FOWLERS POSITION. PT DENIES ANY PAIN. PT IS STABLE.
[2021-01-11] VITALS: BP 109/42
--- NOTE | 2021-01-11 01:10 | NUR ---
PT IS SLEEPING. CHEST RISE AND FALL IS SYMMETRICAL. NO PAIN NOTED. PT IS STABLE. BED IS IN THE LOWEST POSITION AND CALL LIGHT WITHIN REACH. WILL CONTINUE TO MONITOR.
--- NOTE | 2021-01-11 03:00 | NUR ---
PT IS ASLEEP. NO SIGNS OF DISTRESS. NO PAIN NOTED. BREATHING IS UNLABORED. IV FLUIDS ARE INFUSING AND IV IS PATENT. CALL LIGHT IS WITHIN REACH.
[2021-01-11 04:00] VITALS: BP 96/85
--- NOTE | 2021-01-11 05:00 | NUR ---
AWAKE AND ALERT. PT DENIES PAIN. BREATHING IS REGULAR AND UNLABORED. IV FLUIDS ARE INFUSING ORDERED NS AT 50 ML PER HOUR. PT WAS GIVEN MORE WATER REQUESTED.
[2021-01-11 06:28] LABS: BASOPHILS % (AUTO) 0.5 % (0.0-2.0); EOSINOPHILS # (AUTO) 0.5 K/uL (0-0.4); EOSINOPHILS % (AUTO) 6.2 % (0.0-4.0); HEMATOCRIT 26.6 % (36-48); HEMOGLOBIN 8.3 g/dL (12.0-16.0); LYMPHOCYTES # (AUTO) 1.5 K/uL (2.5-16.5); LYMPHOCYTES % (AUTO) 19.8 % (20.5-51.1); MEAN CORPUSCULAR HEMOGLOBIN 22 pg (27-31); MEAN CORPUSCULAR HGB CONC 31 g/dL (33-37); MEAN CORPUSCULAR VOLUME 70.8 fL (80-94); MONOCYTES # (AUTO) 0.6 K/uL (0.8-1.0); MONOCYTES % (AUTO) 8.4 % (1.7-9.3); NEUTROPHILS % (AUTO) 65.1 % (42.2-75.2); PLATELET COUNT (AUTO) 240 K/uL (140-450); RED BLOOD CELL COUNT(AUTO) 3.76 MIL/uL (4.20-5.40); RED CELL DISTRIBUTION WIDTH 18.3 % (11.6-13.7); WHITE BLOOD COUNT (AUTO) 7.7 K/uL (4.8-10.8)
[2021-01-11 06:40] LABS: ANION GAP 12.8 (8-16); CARBON DIOXIDE 22.8 mmol/L (21-32); CREATININE 0.7 mg/dL (0.6-1.3); POTASSIUM 3.6 mmol/L (3.5-5.1)
--- NOTE | 2021-01-11 07:15 | NUR ---
ENDORSED PT TO DAY SHIFT NURSE FOR CONTINUITY OF CARE. PT IS STABLE AT THIS TIME. PLAN OF CARE DISCUSSED.
--- NOTE | 2021-01-11 07:17 | NUR ---
RECEIVED BEDSIDE REPORT FROM PUBLIC ADDRESS SYSTEM MECHANIC RN. PT IS AAOX4 ABLE TO MAKE NEEDS KNOWN. RESPIRATIONS ARE EVEN AND UNLABORED ON ROOM AIR. NO SIGNS OF DISTRESS NOTED. SKIN IS WARM AND DRY. PT IS S/P LAPAROSCOPIC TOTAL ABD AND HYSTERECTOMY FOR UTERINE CANCER ON 01/02. INCISION IN MID ABD, CLEAN AND DRY NO S/S OF INFECTION. PLAN OF CARE DISCUSSED. SAFETY PRECAUTIONS IN PLACE. CALL LIGHT IS WITHIN REACH. WILL CONTINUE MONITOR.
[2021-01-11 08:00] VITALS: BP 127/57
[2021-01-11] MEDS: metroNIDAZOLE 500 MG/NS PREMIX 100 ML IV SCH (09:41)
[2021-01-11] MEDS: PANTOPRAZOLE 40 MG TABEC PO SCH (09:41)
[2021-01-11] MEDS: HYDROcodone/APAP 7.5/325 MG 1 TAB PO PRN (09:41)
--- NOTE | 2021-01-11 09:41 | NUR ---
PATIENT COMPLAINED OF ABD PAIN 03/26. ADMINISTERED NORCO PO PRN PER MD ORDERED. WILL CONTINUE TO MONITOR.
--- NOTE | 2021-01-11 09:50 | NUR ---
ALL SCHEDULED MEDS GIVEN. PT IS STABLE. NO DISTRESS NOTED. WILL CONTINUE TO MONITOR.
--- NOTE | 2021-01-11 10:31 | NUR ---
(01/11/21) RD INITIAL ASSESSMENT COMPLETED PLEASE REFER TO NUTRITION ASSESSMENT UNDER CARE ACTIVITY FOR ESTIMATED NUTRITIONAL NEEDS. RD RECOMMENDATIONS: 1. CONTINUE REGULAR DIET TOLERATED. 2. CONSULT RDN PRN. 3. RD WILL F/U 5-7 DAYS; LOW RISK. MARY PRUETT MS, RDN
[2021-01-11 12:00] VITALS: BP 96/85
--- NOTE | 2021-01-11 12:30 | NUR ---
CHECKED ON PATIENT. PATIENT IS EATING ON THE EDGE OF THE BED. NO SIGNS OF DISTRESS NOTED. WILL CONTINUE TO MONITOR.
[2021-01-11] MEDS ORDERED: DOCU-299 PO (12:56)
[2021-01-11] MEDS ORDERED: PANT40EC56 PO (12:56)
[2021-01-11] MEDS ORDERED: SULF-59 PO (12:56)
[2021-01-11] MEDS ORDERED: FERR325E14 PO (13:03)
[2021-01-11] MEDS ORDERED: ASCO500T95 PO (13:03)
--- NOTE | 2021-01-11 13:30 | NUR ---
DISCHARGE ORDER IN PLACE. WILL NOTIFY PATIENT ABOUT DISCHARGE ORDER.
[2021-01-11 15:19] VITALS: BP 104/48
--- NOTE | 2021-01-11 16:00 | NUR ---
DISCUSSED DISCHARGE INFORMATION TO PATIENT. PATIENT SIGNED THE DISCHARGE FORMS AND VERBALIZED UNDERSTANDING REGARDING THEIR DISCHARGE INSTRUCTIONS. PATIENT WILL BE PICKED UP BY FAMILY AT 1630. WILL CONTINUE TO MONITOR.
--- NOTE | 2021-01-11 16:30 | NUR ---
PATIENT DISCHARGED OFF THE UNIT AND PICKED UP BY FAMILY AT THE FRONT LOBBY. PT WAS STABLE PRIOR TO DISCHARGE.
[2021-01-12 08:08] LABS: FERRITIN 85 ng/mL (15-150); TRANSFERRIN 206 mg/dL (192-364)
== END 2021-01-11 16:30 | disposition home or self-care (01) | DRG 862 ==
LOC: MED 03:21 → MTU 06:49
PROVIDERS: ADMIT Family Medicine; ATTEND Family Medicine
DX: T81.40XA Infection following a procedure, unspecified, initial encounter (principal); A41.51 Sepsis due to Escherichia coli [E. coli]; G93.41 Metabolic encephalopathy; N39.0 Urinary tract infection, site not specified; E87.1 Hypo-osmolality and hyponatremia; E46 Unspecified protein-calorie malnutrition; Z68.41 Body mass index [BMI] 40.0-44.9, adult; T81.44XA Sepsis following a procedure, initial encounter; K80.20 Calculus of gallbladder without cholecystitis without obstruction; D50.9 Iron deficiency anemia, unspecified; R80.9 Proteinuria, unspecified; R82.4 Acetonuria; R77.8 Other specified abnormalities of plasma proteins; N76.0 Acute vaginitis; E87.6 Hypokalemia; E66.9 Obesity, unspecified; I10 Essential (primary) hypertension; Z20.822 Contact with and (suspected) exposure to COVID-19; Z98.891 History of uterine scar from previous surgery; Z90.710 Acquired absence of both cervix and uterus; Z90.722 Acquired absence of ovaries, bilateral; Z79.899 Other long term (current) drug therapy; Z98.51 Tubal ligation status; Z85.42 Personal history of malignant neoplasm of other parts of uterus
CPT/HCPCS: 36415; 70450; 71045; 80048; 80053; 80305; 81001; 82150; 82728; 83036; 83540; 83605; 83690; 83735; 83880; 84100; 84436; 84439; 84443; 84479; 84484; 85025; 85045; 85610; 85730; 87040; 87070; 87075; 87081; 87086; 87205; 96361; 96365; 96375; 99291; J0696; J1885; J2543; J3490; J7030; J7060

== ENCOUNTER 2023-09-01 19:46 | Emergency (ER) | payer OTHER ==
[~2023-09-01] VITALS: Ht 160 cm; Wt 108.9 kg
[~2023-09-01 19:46] MED LIST changes: +ACET-9525 PO; +ASCO500T95 PO; +DOCU-299 PO; +FERR325E14 PO; +IBUP-1842 PO; +PANT40EC56 PO; +SULF-59 PO
[2023-09-01 20:25] VITALS: BP 111/58; PULSE 68; RESP 18; TEMP 98.1; O2SAT 98
[2023-09-01 20:30] VITALS: BP 111/58; PULSE 68; RESP 18; TEMP 98.1; O2SAT 98
[2023-09-02] MEDS ORDERED: IBUPROFEN 800 MG TAB PO ONE (01:55)
[2023-09-02] MEDS ORDERED: IBUP-2213 PO (02:24)
== END 2023-09-02 02:27 | disposition home or self-care (01) ==
LOC: MED 19:46
DX: S61.256A Open bite of right little finger without damage to nail, initial encounter (principal); Z86.69 Personal history of other diseases of the nervous system and sense organs; Z90.49 Acquired absence of other specified parts of digestive tract; Z90.710 Acquired absence of both cervix and uterus; Z79.899 Other long term (current) drug therapy; Z79.2 Long term (current) use of antibiotics; Z79.1 Long term (current) use of non-steroidal anti-inflammatories (NSAID); W54.0XXA Bitten by dog, initial encounter; Y93.89 Activity, other specified; Y92.89 Other specified places as the place of occurrence of the external cause; Y99.8 Other external cause status
CPT/HCPCS: 99282

== ENCOUNTER 2023-11-06 18:42 | Emergency (ER) | payer OTHER ==
[~2023-11-06] VITALS: Ht 160 cm; Wt 104.3 kg
[~2023-11-06 18:42] MED LIST changes: +IBUP-2213 PO
[2023-11-06 18:51] VITALS: BP 124/70; PULSE 63; RESP 16; TEMP 98; O2SAT 98
[2023-11-06] MEDS ORDERED: KETOROLAC 60 MG/2 ML VIAL IM ONE ×2 (19:10→20:22)
[2023-11-06] MEDS ORDERED: ACET-10509 PO ×2 (22:48→23:11)
[2023-11-06] MEDS ORDERED: NAPR-54 PO ×2 (22:48→23:11)
[2023-11-06 23:08] VITALS: BP 124/74; PULSE 66; RESP 17; O2SAT 98
== END 2023-11-06 23:09 | disposition home or self-care (01) ==
LOC: MED 18:42
DX: S89.92XA Unspecified injury of left lower leg, initial encounter (principal); E66.9 Obesity, unspecified; Z86.69 Personal history of other diseases of the nervous system and sense organs; Z79.899 Other long term (current) drug therapy; Z79.2 Long term (current) use of antibiotics; Z79.1 Long term (current) use of non-steroidal anti-inflammatories (NSAID); X58.XXXA Exposure to other specified factors, initial encounter; Y92.89 Other specified places as the place of occurrence of the external cause; Y93.89 Activity, other specified; Y99.8 Other external cause status
CPT/HCPCS: 29505; 73562; 96372; 99283; J1885